=== PATIENT | female | born 1985 | race American Indian/Alaskan Native ===

== ENCOUNTER 2016-11-21 14:40 | Emergency (ER) | payer MEDICAID ==
[2016-11-21 14:55] VITALS: BP 101/64
--- NOTE | 2016-11-21 15:00 | EDM.PDOC ---
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 Normal period started on time 3 days ago. First day was normal. Second day patient had heavier bleeding than normal. Today complained soaked 1 large pad every 1-2 hours. Admits to suprapubic cramps more to the right side. Severity: moderate Improves with: Reports: None Worsens with: Reports: None Associated Symptoms: Reports: no other symptoms Generalized Pain Score (Numeric/FACES): 5 Vaginal Pain Score (Numeric/FACES): 6 - Related Data Allergies Allergy/AdvReac Type Severity Reaction Status Date / Time No Known Allergies Allergy Verified 11/21/16 14:55 Home Meds: Home Meds . [No Known Home Meds] 11/21/16 [History] Ferrous Sulfate [Ferrous Sulfate] 1 tab PO DAILY 11/21/16 [History] PARoxetine HCl [Paxil Cr] 37.5 mg PO DAILY 11/21/16 [History] QUEtiapine Fumarate [Seroquel] 400 mg PO DAILY 11/21/16 [History] Past Medical History : 5 Para: 4 (sAb1, L 4. ) - Past Surgical History Female Surgical History: Reports: section (x4), D&C, Endometrial ablation, Tubal ligation Social & Family History - Family History Family Medical History: Noncontributory - Tobacco Use Smoking Status *Q: Never Smoker Years of Tobacco use: 10 Packs/Tins Daily: 0.5 Second Hand Smoke Exposure: No - Caffeine Use Caffeine Use: Reports: Coffee, Soda, Tea - Recreational Drug Use Recreational Drug Use: No ED ROS GENERAL - Review of Systems Review Of Systems: ROS reveals no pertinent complaints other than HPI. ED EXAM, RENAL/ - Physical Exam Exam: See Below Exam Limited By: No limitations General Appearance: alert, WD/WN, no apparent distress Respiratory/Chest: no respiratory distress, lungs clear, normal breath sounds, no accessory muscle use, chest non-tender Cardiovascular: normal peripheral pulses, regular rate, rhythm, no edema, no gallop, no JVD, no murmur, no rub GI/Abdominal: Tender (suprapubic and right lower quadrant tenderness. ). No: Guarding, Rigid, Rebound (Female) Exam: Vaginal bleeding (heavy) Back Exam: normal inspection, full range of motion, NT Extremities: normal inspection, normal range of motion, non-tender, normal capillary refill, no pedal edema Neurological: alert, oriented, CN II-XII intact, normal cognition, normal gait, normal reflexes, no motor/sensory deficits Psychiatric: anxious Skin Exam: Warm, Dry, Intact, Normal color, No rash Course - Vital Signs Last Recorded V/S: Last Vital Signs Temp 36.1 C 11/21/16 14:53 Pulse 108 H 11/21/16 14:53 Resp 20 11/21/16 14:53 BP 135/86 11/21/16 14:53 Pulse Ox 100 11/21/16 14:53 - Orders/Labs/Meds Labs: Laboratory Tests 11/21/16 11/21/16 11/21/16 Range/Units 15:12 15:12 15:12 WBC 5.0 (5.0-10.0) 10^3/uL RBC 4.57 (4.2-5.4) 10^6/uL Hgb 14.1 (12.0-16.0) g/dL Hct 41.0 (37.0-47.0) % MCV 89.7 (80-100) fL MCH 30.9 (27.0-34.0) pg MCHC 34.4 (33.0-35.0) g/dL Plt Count 209 (150-450) 10^3/uL Neut % (Auto) 50.6 (42.2-75.2) % Lymph % (Auto) 38.4 (20.5-50.1) % [place] % (Auto) 5.4 (2-8) % Eos % (Auto) 4.6 H (1.0-3.0) % Baso % (Auto) 1.0 (0.0-1.0) % PT 10.0 (9.0-12.0) SEC INR 1.0 (0.9-1.2) APTT 25.9 (22.0-34.0) SEC Sodium 137 (135-145) mmol/L Potassium 3.5 L (3.6-5.0) mmol/L Chloride 106 (101-111) mmol/L Carbon Dioxide 23.0 (21.0-31.0) mmol/L Anion Gap 11.5 BUN 9 (7-18) mg/dL Creatinine 0.8 (0.6-1.3) mg/dL Est Cr Clr Drug Dosing 89.60 mL/min Estimated GFR (MDRD) > 60 BUN/Creatinine Ratio 11.25 Glucose 104 (74-105) mg/dL Calcium 9.4 (8.4-10.2) mg/dl Total Bilirubin 1.1 H (0.2-1.0) mg/dL AST 52 H (10-42) IU/L ALT 74 H (10-60) IU/L Alkaline Phosphatase 62 (42-121) IU/L Total Protein 8.4 H (6.7-8.2) g/dl Albumin 4.8 (3.2-5.5) g/dl Globulin 3.6 Albumin/Globulin Ratio 1.33 HCG, Qual // Range/Units 15:12 WBC (5.0-10.0) 10^3/uL RBC (4.2-5.4) 10^6/uL Hgb (12.0-16.0) g/dL Hct (37.0-47.0) % MCV (80-100) fL MCH (27.0-34.0) pg MCHC (33.0-35.0) g/dL Plt Count (150-450) 10^3/uL Neut % (Auto) (42.2-75.2) % Lymph % (Auto) (20.5-50.1) % [place] % (Auto) (2-8) % Eos % (Auto) (1.0-3.0) % Baso % (Auto) (0.0-1.0) % PT (9.0-12.0) SEC INR (0.9-1.2) APTT (22.0-34.0) SEC Sodium (135-145) mmol/L Potassium (3.6-5.0) mmol/L Chloride (101-111) mmol/L Carbon Dioxide (21.0-31.0) mmol/L Anion Gap BUN (7-18) mg/dL Creatinine (0.6-1.3) mg/dL Est Cr Clr Drug Dosing mL/min Estimated GFR (MDRD) BUN/Creatinine Ratio Glucose (74-105) mg/dL Calcium (8.4-10.2) mg/dl Total Bilirubin (0.2-1.0) mg/dL AST (10-42) IU/L ALT (10-60) IU/L Alkaline Phosphatase (42-121) IU/L Total Protein (6.7-8.2) g/dl Albumin (3.2-5.5) g/dl Globulin Albumin/Globulin Ratio HCG, Qual Negative Meds: Medications Discontinued Medications Generic Name Dose Route Start Last Admin Trade Name Freq PRN Reason Stop Dose Admin Medroxyprogesterone Acetate 10 mg 11/21/16 15:50 Provera PO 11/21/16 15:51 ONETIME ONE Departure - Departure Time of Disposition: 16:04 Disposition: Home, Self-Care 01 Condition: good Clinical Impression: Menorrhagia Qualifiers: Menorrahagia type: with regular cycle Qualified Code(s): N92.0 - Excessive and frequent menstruation with regular cycle - Discharge Information Instructions: Menorrhagia Forms: ED Department Discharge Additional Instructions: RX: Provera 10mg. Follow up in clinic if not improved in 3 days. Return to ER if pain becomes severe or bleeding worsens.
[2016-11-21 15:40] LABS: CHLORIDE,CL 106 mmol/L (101-111); SODIUM,NA 137 mmol/L (135-145)
== END 2016-11-21 16:25 | disposition home or self-care (01) ==
LOC: DL.ED 14:40
DX: N92.0 Excessive and frequent menstruation with regular cycle (principal); Z79.899 Other long term (current) drug therapy
CPT/HCPCS: 36415; 80053; 84703; 85025; 85610; 85730; 99283; A9270

== ENCOUNTER 2017-03-22 19:43 | Emergency (ER) | payer MEDICAID ==
[2017-03-22 20:05] VITALS: BP 117/76
[2017-03-22] MEDS ORDERED: methylPREDNISolone Sodium Succinate 125 MG/2 ML SDV IM ONE (20:11)
[2017-03-22] MEDS ORDERED: Cephalexin 500 MG Cap PO ONE (20:12)
[2017-03-22] MEDS ORDERED: Famotidine 20 MG Tab PO ONE (20:12)
--- NOTE | 2017-03-22 20:21 | EDM.PDOC ---
ED HPI GENERAL MEDICAL PROBLEM - General Chief Complaint: Skin Complaint Stated Complaint: SKIN PROBLEMS, [id number] Time Seen by Provider: 03/22/17 20:05 Source of Information: Reports: Patient History Limitations: Reports: No Limitations - History of Present Illness INITIAL COMMENTS - FREE TEXT/NARRATIVE: 32 yo F is here for an extensive skin rash that started about a week ago. 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 She worked at that place for about 3 days and during one of those days about 1 week ago, she started to notice an area of redness along right elbow (antecubital fossa). She even took a warm shower but that made things worse and her aunt later told her that she should have taken a cold shower/bath instead. This elbow area of redness eventually became itchy and the rash gradually spread to both of her arms, neck, and face. Her legs and torso (chest , back) do not have any rash. The rash is red, blotchy, itchy; she continues to itch it a lot. She has tried OTC PO benadryl, topical meds (cortisone, triple ABX, anti-itch cream, and calaclear lotion). The itching was unbearable today and the area along right elbow is starting to have minor drainage due to excessive itching. Denies fever, chills, SOB, nausea, vomiting, lip swelling, oral mucosa involvement, recent travel, medication changes, being on chronic medications. Duration: Week(s): (1) Location: Reports: Face, Neck, Upper Extremity, Left, Upper Extremity, Right - Related Data Allergies Allergy/AdvReac Type Severity Reaction Status Date / Time No Known Allergies Allergy Verified 03/22/17 19:56 Home Meds: Home Meds . [No Known Home Meds] 11/21/16 [History] Past Medical History - Past Health History Medical/Surgical History: Denies Medical/Surgical History - Past Surgical History Female Surgical History: Reports: Section, D&C, Endometrial Ablation , Tubal Ligation Social & Family History - Family History Family Medical History: Noncontributory - Tobacco Use Smoking Status *Q: Unknown Ever Smoked Years of Tobacco use: 10 Packs/Tins Daily: 0.5 Second Hand Smoke Exposure: No - Caffeine Use Caffeine Use: Reports: Soda - Recreational Drug Use Recreational Drug Use: No ED ROS GENERAL - Review of Systems Review Of Systems: See Below Constitutional: Reports: No Symptoms HEENT: Reports: No Symptoms Respiratory: Reports: No Symptoms Cardiovascular: Reports: No Symptoms Endocrine: Reports: No Symptoms GI/Abdominal: Reports: No Symptoms : Reports: No Symptoms Skin: Reports: Dryness, Pruritis, Rash, Erythema Neurological: Reports: No Symptoms Psychiatric: Reports: No Symptoms Hematologic/Lymphatic: Reports: No Symptoms ED EXAM, SKIN/RASH Exam: See Below Exam Limited By: No Limitations General Appearance: Alert, WD/WN, No Apparent Distress Nose: Normal Mucosa Throat/Mouth: Normal Inspection, Normal Oropharynx, Normal Voice, No Airway Compromise Head: Atraumatic Neck: Supple Respiratory/Chest: No Respiratory Distress, No Accessory Muscle Use, Chest Non- Tender Cardiovascular: No Edema Neurological: Alert, Oriented, Normal Cognition Psychiatric: Normal Affect Skin: Warm, Dry, Rash Characteristics: Maculopapular (Diffuse (b/l UE, face, neck)), Vesicular (right antecubital fossa (mild vesicular, with mild drainage from the itching).), Urticarial, Erythematous Lymphatic: No Adenopathy Course - Vital Signs Last Recorded V/S: Last Vital Signs Temp 98.9 F 03/22/17 20:04 Pulse 89 03/22/17 20:04 Resp 20 03/22/17 20:04 BP 117/76 03/22/17 20:04 Pulse Ox 99 03/22/17 20:04 - Orders/Labs/Meds Orders: Active Orders 24 hr Category Date Time Status Cephalexin [Keflex] Med 03/22/17 20:12 Once 500 mg PO ONETIME ONE Meds: Medications Discontinued Medications Generic Name Dose Route Start Last Admin Trade Name Freq PRN Reason Stop Dose Admin Famotidine 20 mg 03/22/17 20:12 Pepcid PO 03/22/17 20:13 ONETIME ONE Methylprednisolone Sodium Succinate 125 mg 03/22/17 20:11 Solu-Medrol IM 03/22/17 20:12 ONETIME ONE Departure - Departure Time of Disposition: 20:35 Disposition: Home, Self-Care 01 Condition: Fair Clinical Impression: Urticaria Contact dermatitis Qualifiers: Contact dermatitis type: irritant Contact dermatitis trigger: other trigger Qualified Code(s): L24.89 - Irritant contact dermatitis due to other agents; L24.8 - Irritant contact dermatitis due to other agents Cellulitis Qualifiers: Site of cellulitis: unspecified site Qualified Code(s): L03.90 - Cellulitis, unspecified - Discharge Information Instructions: Contact Dermatitis, [id number], Rash, Pruritus Additional Instructions: Avoid itching the areas involved. Keep the areas involved clean and dry. Prednisone 40 mg orally daily for 5 days. Prescription provided. Keflex 500 mg orally every 6 hours for 14 days. Prescription provided. Avoid exposure to other potential irritants. Follow up at primary care facility in 7-10 days if symptoms persist. - My Orders Last 24 Hours: My Active Orders 03/22/17 20:12 Cephalexin [Keflex] 500 mg PO ONETIME ONE - Assessment/Plan Last 24 Hours: My Active Orders 03/22/17 20:12 Cephalexin [Keflex] 500 mg PO ONETIME ONE
== END 2017-03-22 20:45 | disposition home or self-care (01) ==
LOC: DL.ED 19:43
DX: L24.89 Irritant contact dermatitis due to other agents (principal); L03.90 Cellulitis, unspecified
CPT/HCPCS: 96372; 99282; A9270; J2930

== ENCOUNTER 2017-03-31 15:39 | Emergency (ER) | payer MEDICAID ==
--- NOTE | 2017-03-31 15:55 | EDM.PDOC ---
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 Pt. state she went home and showered with hot water and noticed her forearm skin to be irritated. Pt. seen in this ED one week ago and treated w/ steroids and antibiotic. Pt. states on Sat she returned to the same place to retrieve her clothes and on awoke with more irritation to her neck and face Onset Date: 03/24/17 Onset Time: 09:00 Duration: Week(s): Location: Reports: Face, Neck, Upper Extremity, Left, Upper Extremity, Right Generalized Pain Score (Numeric/FACES): 5 - Related Data Allergies Allergy/AdvReac Type Severity Reaction Status Date / Time No Known Allergies Allergy Verified 03/31/17 15:53 Home Meds: Home Meds . [No Known Home Meds] 11/21/16 [History] Past Medical History - Past Health History Medical/Surgical History: Denies Medical/Surgical History - Past Surgical History Female Surgical History: Reports: Section, D&C, Endometrial Ablation , Tubal Ligation Social & Family History - Family History Family Medical History: Noncontributory - Tobacco Use Smoking Status *Q: Unknown Ever Smoked Years of Tobacco use: 10 Packs/Tins Daily: 0.5 Second Hand Smoke Exposure: No - Caffeine Use Caffeine Use: Reports: Soda - Recreational Drug Use Recreational Drug Use: No ED ROS GENERAL - Review of Systems Review Of Systems: See Below Constitutional: Reports: No Symptoms HEENT: Reports: No Symptoms Respiratory: Reports: No Symptoms Cardiovascular: Reports: No Symptoms Endocrine: Reports: No Symptoms GI/Abdominal: Reports: No Symptoms : Reports: No Symptoms Musculoskeletal: Reports: No Symptoms Skin: Reports: Pruritis (face, neck and bilat upper extremities), Rash, Erythema Neurological: Reports: No Symptoms, Difficulty Walking Psychiatric: Reports: Hallucinations Immunologic: Reports: No Symptoms ED EXAM, SKIN/RASH Exam: See Below Exam Limited By: No Limitations General Appearance: Alert, No Apparent Distress Eye Exam: Bilateral Eye: EOMI, PERRL Ears: Normal External Exam Nose: Normal Inspection Throat/Mouth: Normal Inspection Head: Atraumatic Neck: Normal Inspection, Supple Respiratory/Chest: No Respiratory Distress, Lungs Clear Cardiovascular: Normal Peripheral Pulses, Regular Rate, Rhythm GI/Abdominal: Normal Bowel Sounds Back Exam: Normal Inspection Extremities: Normal Range of Motion Neurological: Alert, Oriented, CN II-XII Intact Psychiatric: Normal Affect, Normal Mood Skin: Erythema, Rash (to face, neck and bilat upper extremities) Characteristics: Macular, Confluent, Itzel, Erythematous Associated features: Warmth Lymphatic: No Adenopathy Course - Vital Signs Last Recorded V/S: Last Vital Signs Temp 37.6 C 03/31/17 15:47 Pulse 101 H 03/31/17 15:47 Resp 16 03/31/17 15:47 BP 152/97 H 03/31/17 15:47 Pulse Ox 99 03/31/17 15:47 - Orders/Labs/Meds Meds: Medications Discontinued Medications Generic Name Dose Route Start Last Admin Trade Name Freq PRN Reason Stop Dose Admin Methylprednisolone Sodium Succinate 125 mg 03/31/17 16:21 03/31/17 16:26 Solu-Medrol IM 03/31/17 16:22 125 mg ONETIME ONE Administration Departure - Departure Time of Disposition: 16:29 Disposition: Home, Self-Care 01 Condition: Good Clinical Impression: Contact dermatitis Qualifiers: Contact dermatitis type: irritant Contact dermatitis trigger: other trigger Qualified Code(s): L24.89 - Irritant contact dermatitis due to other agents - Discharge Information Forms: ED Department Discharge Additional Instructions: Keep skin clean ( WASH AND RINSE WITH COLD WATER ONLY) F/U w/ PCP
[2017-03-31] MEDS ORDERED: methylPREDNISolone Sodium Succinate 125 MG/2 ML SDV IM ONE (16:21)
[2017-03-31 16:33] VITALS: BP 137/86
== END 2017-03-31 16:38 | disposition home or self-care (01) ==
LOC: DL.ED 15:39
DX: L24.89 Irritant contact dermatitis due to other agents (principal); Z98.51 Tubal ligation status
CPT/HCPCS: 96372; 99283; J2930

== ENCOUNTER 2020-01-30 10:21 | Emergency (ER) | payer OTHER ==
[2020-01-30 10:38] VITALS: BP 142/71; PULSE 62
[2020-01-30] MEDS ORDERED: Tetracaine HCl/PF 0.5% 4 ML Bottle EYELF ONE (11:11)
[2020-01-30] MEDS ORDERED: Fluorescein 1 MG Ophth Strip EYELF ONE (11:11)
--- NOTE | 2020-01-30 11:44 | EDM.PDOC ---
Scribed by Sabi Poe 01/30/20 1141 for Berenice Velazquez NP ED HPI GENERAL MEDICAL PROBLEM - General Chief Complaint: Genitourinary Problem Stated Complaint: PT STATED KIDNEY INFECTION Time Seen by Provider: 01/30/20 10:42 Source of Information: Reports: Patient, RN, RN Notes Reviewed History Limitations: Reports: No Limitations - History of Present Illness INITIAL COMMENTS - FREE TEXT/NARRATIVE: Patient presents to the ER with complaint or UTI symptoms for 1 week. She has been taking Pyridium. Urine has an odor and is cloudy. She has no back pain. She does have dysuria. She also has a left red eye and wearing contacts. Onset: Gradual Duration: Constant Location: Reports: Back Quality: Reports: Ache Severity: Moderate Improves with: Reports: None Worsens with: Reports: None Associated Symptoms: Reports: No Other Symptoms - Related Data Allergies Allergy/AdvReac Type Severity Reaction Status Date / Time No Known Allergies Allergy Verified 01/30/20 10:38 Home Meds: Home Meds Buprenorphine HCl/Naloxone HCl [Suboxone 4 mg-1 mg Sl Film] 1 film PO DAILY 01/30/20 [History] Past Medical History - Past Health History Medical/Surgical History: Denies Medical/Surgical History HEENT History: Reports: None Cardiovascular History: Reports: None Respiratory History: Reports: None Gastrointestinal History: Reports: None Genitourinary History: Reports: None [employer] History: Reports: None Musculoskeletal History: Reports: None Neurological History: Reports: None Psychiatric History: Reports: Addiction Endocrine/Metabolic History: Reports: None Hematologic History: Reports: None Immunologic History: Reports: None Oncologic (Cancer) History: Reports: None Dermatologic History: Reports: None - Infectious Disease History Infectious Disease History: Reports: Chicken Pox - Past Surgical History Head Surgeries/Procedures: Reports: None Female Surgical History: Reports: Section, D&C, Tubal Ligation Social & Family History - Tobacco Use Smoking Status *Q: Never Smoker Second Hand Smoke Exposure: No - Caffeine Use Caffeine Use: Reports: Soda - Recreational Drug Use Recreational Drug Use: No - Living Situation & Occupation Living situation: Reports: with Family ED ROS GENERAL - Review of Systems Review Of Systems: Comprehensive ROS is negative, except as noted in HPI. HEENT: Reports: Eye Pain, Other (red left eye; mild scratchy. New contacts this am) ED EXAM, RENAL/ - Physical Exam Exam: See Below Exam Limited By: No Limitations General Appearance: Alert, WD/WN, No Apparent Distress Eye Exam: Right Eye: Normal Inspection, Left Eye: Conjunctival Injection, Bilateral Eye: PERRL Respiratory/Chest: No Respiratory Distress, Lungs Clear, Normal Breath Sounds, No Accessory Muscle Use, Chest Non-Tender Cardiovascular: Normal Peripheral Pulses, Regular Rate, Rhythm, No Edema, No Gallop, No JVD, No Murmur, No Rub GI/Abdominal: Normal Bowel Sounds, Soft, Non-Tender, No Organomegaly, No Distention, No Abnormal Bruit, No Mass Back Exam: Normal Inspection, Full Range of Motion, NT Extremities: Normal Inspection, Normal Range of Motion, Non-Tender, Normal Capillary Refill, No Pedal Edema Neurological: Alert, Oriented, CN II-XII Intact, Normal Cognition, Normal Gait, Normal Reflexes, No Motor/Sensory Deficits Skin Exam: Warm, Dry, Intact, Normal Color, No Rash Course - Vital Signs Text/Narrative:: Urine positive for Uti. Macrobid x 5 days. Left eye injected x 2 days; new contact this am. Eye exam with fluorescein stain; negative for abrasion. Most likely a bacterial conjunctivitis Polytrim ordered x 5 days. Last Recorded V/S: Last Vital Signs Temp 97.2 F 01/30/20 10:35 Pulse 62 01/30/20 10:35 Resp 18 01/30/20 10:35 BP 142/71 H 01/30/20 10:35 Pulse Ox 99 01/30/20 10:35 - Orders/Labs/Meds Orders: Active Orders 24 hr Category Date Time Status CULTURE URINE [RM] Urgent Lab 01/30/20 10:25 Received Labs: Laboratory Tests 01/30/20 Range/Units 10:25 Urine Color Yellow (YELLOW) Urine Appearance Slightly cloudy (CLEAR) Urine pH 5.5 (5.0-9.0) Ur Specific [place] 1.015 (1.005-1.030) Urine Protein Negative (NEGATIVE) Urine Glucose (UA) Negative (NEGATIVE) Urine Ketones Negative (NEGATIVE) Urine Occult Blood Negative (NEGATIVE) Urine Nitrite Negative (NEGATIVE) Urine Bilirubin Negative (NEGATIVE) Urine Urobilinogen 1.0 (0.2-1.0) mg/dL Ur Leukocyte Esterase Trace H (NEGATIVE) Urine RBC 0-5 /HPF Urine WBC 5-10 H (0-5/HPF) /HPF Ur Epithelial Cells Few (NOT SEEN) /HPF Urine Bacteria Many H (0-FEW/HPF) /HPF Urine Mucus Few H (NOT SEEN) /LPF Meds: Medications Discontinued Medications Generic Name Dose Route Start Last Admin Trade Name Destiney PRN Reason Stop Dose Admin Fluorescein Sodium 1 mg 01/30/20 11:11 Ful-Marlsy EYELF 01/30/20 11:12 ONETIME ONE Tetracaine HCl 1 ml 01/30/20 11:11 Tetracaine 0.5% Steri-Unit Aolndra EYELF 01/30/20 11:12 ASDIRECTED ONE Departure - Departure Time of Disposition: 11:41 Disposition: Home, Self-Care 01 Condition: Good Clinical Impression: UTI, Urinary tract infectious disease Conjunctivitis Qualifiers: Conjunctivitis type: acute Acute conjunctivitis type: bacterial Laterality: left Qualified Code(s): H10.32 - Unspecified acute conjunctivitis, left eye - Discharge Information Instructions: Urinary Tract Infection, Adult, [id number], Bacterial Conjunctivitis, Adult Forms: ED Department Discharge Additional Instructions: Left eye antibiotic drops x 5 days. see RX. Please use new contacts after 2 days; throw away mascara after 2 days. Ophthalmology if not improving in 2 days Take all UTI med macrobid; return to PCP if not improving Sepsis Event Note (ED) - Evaluation Sepsis Screening Result: No Definite Risk - Focused Exam Vital Signs: Vital Signs Temp Pulse Resp BP Pulse Ox 01/30/20 10:35 97.2 F 62 18 142/71 H 99 - My Orders Last 24 Hours: My Active Orders 01/30/20 10:25 CULTURE URINE [RM] Urgent - Assessment/Plan Last 24 Hours: My Active Orders 01/30/20 10:25 CULTURE URINE [RM] Urgent I have read and agree with the documentation that has been completed regarding this visit. By signing this record, I attest that the documentation was completed in my physical presence and is an accurate record of the encounter.
== END 2020-01-30 11:55 | disposition home or self-care (01) ==
LOC: DL.ED 10:21
DX: N39.0 Urinary tract infection, site not specified (principal); H10.32 Unspecified acute conjunctivitis, left eye
CPT/HCPCS: 81001; 87086; 87088; 87186; 99283